=== PATIENT | male | born 1975 | race Caucasian/White ===

== ENCOUNTER 2022-06-24 11:54 | Inpatient (IN) | payer BC ==
[2022-06-24 12:37] LABS: #Basophils 0.1 10x3/uL (0.0-0.2); #Monocytes 0.5 10x3/uL (0.0-1.1); #Neutrophils 6.7 10x3/uL (1.5-8.4); %Basophils 0.6 % (0.0-2.0); %Eosinophils 0.3 % (0.0-6.0); %Lymphocytes 21.1 % (18.0-47.0); %Monocytes 5.6 % (0.0-10.0); %Neutrophils 72.1 % (40.0-75.0); Hemoglobin 17.2 g/dL (13.5-17.5); Mean Corpuscular HGB CONC 35.4 g/dL (32.0-36.0); Mean Corpuscular Hemoglobin 30.9 pg (27.0-33.0); Mean Corpuscular Volume 87.3 fl (81.2-95.1); Mean Platelet Volume 11.4 fl (7.4-10.4); Platelet Count 203 10x3/uL (150-450); RBC Distribution Width 12.6 % (11.5-14.5); Red Blood Cell (RBC) Count 5.57 10x6/uL (4.32-5.72); White Blood Cell (WBC) Count 9.3 10x3/uL (3.5-10.5)
[2022-06-24 12:55] LABS: ALT (SGPT) 26 U/L (8-55); AST (SGOT) 34 U/L (5-34); Albumin 4.6 g/dL (3.5-5.0); Alkaline Phosphatase 83 U/L (40-110); Anion Gap 17 mmol/L (10-20); BUN (Urea Nitrogen) 10 mg/dL (8.9-20.6); Bilirubin, Total 0.7 mg/dL (0.2-1.2); CK (CPK) 350 U/L (30-200); Calc. Creatinine Clearance 0 mL/min (70-130); Carbon Dioxide 26 mmol/L (22-29); Chloride 101 mmol/L (98-107); Estimated GFR 107; Globulin 3.2 g/dL (2.4-3.5); Glucose 137 mg/dL (70-105); Lipase 36 U/L (8-78); Potassium 4.1 mmol/L (3.5-5.1); Protein, Total 7.8 g/dL (6.0-8.3); Sodium 140 mmol/L (136-145)
[2022-06-24] MEDS ORDERED: Aspirin Chewable 81 MG TAB ONE (12:58)
[2022-06-24 13:25] LABS: CKMB 27.5 ng/mL (0-6.6)
[2022-06-24] MEDS ORDERED: Dextrose 5% in Water 1,000 ML IV PRN (13:37)
[2022-06-24] MEDS ORDERED: Dextrose 50% Abboject 50 ML SYRINGE SLOW IVP PRN (13:37)
[2022-06-24] MEDS ORDERED: Ondansetron PF 4 MG/2 ML Vial IVP PRN (13:37)
[2022-06-24] MEDS ORDERED: Nitroglycerin 0.4 MG TAB (25 Tab Bottle) SL PRN (13:37)
[2022-06-24] MEDS ORDERED: Acetaminophen 325 MG TAB PO PRN (13:37)
[2022-06-24] MEDS ORDERED: HumaLOG 300 UNITS/3 ML VIAL SC PRN ×2 (13:37)
[2022-06-24 14:39] LABS: Troponin I 5.059 ng/mL (< 0.028)
[2022-06-24] MEDS: Sodium Chloride 0.9% 1,000 ML IV SCH (16:45)
[2022-06-24 17:53] VITALS: BMI 28.2
[2022-06-24] MEDS ORDERED: FLU VACC QS2022-23(6MOS UP)/PF 60 MCG/0.5 ML SYRINGE IM ONE (18:15)
[2022-06-24] MEDS: Nitroglycerin 2% Ointment 1 INCH/1 GM Packet TOP SCH ×2 (18:24→21:49)
[2022-06-24 18:27] LABS: Troponin I 5.505 ng/mL (< 0.028)
[2022-06-24] MEDS: Atorvastatin Calcium 40 MG TAB PO SCH (21:49)
[2022-06-24] MEDS: Metoprolol Tartrate 25 MG TAB PO SCH (21:49)
[2022-06-25 06:32] LABS: #Basophils 0.1 10x3/uL (0.0-0.2); #Eosinphils 0.1 10x3/uL (0.0-0.5); #Monocytes 0.6 10x3/uL (0.0-1.1); #Neutrophils 7.6 10x3/uL (1.5-8.4); %Basophils 0.6 % (0.0-2.0); %Eosinophils 0.5 % (0.0-6.0); %Lymphocytes 18.6 % (18.0-47.0); %Monocytes 6.2 % (0.0-10.0); %Neutrophils 73.7 % (40.0-75.0); Hemoglobin 15.8 g/dL (13.5-17.5); Mean Corpuscular HGB CONC 36.2 g/dL (32.0-36.0); Mean Corpuscular Hemoglobin 31.2 pg (27.0-33.0); Mean Corpuscular Volume 86.2 fl (81.2-95.1); Mean Platelet Volume 10.7 fl (7.4-10.4); Platelet Count 166 10x3/uL (150-450); RBC Distribution Width 12.8 % (11.5-14.5); Red Blood Cell (RBC) Count 5.06 10x6/uL (4.32-5.72); White Blood Cell (WBC) Count 10.3 10x3/uL (3.5-10.5)
[2022-06-25 06:54] LABS: ALT (SGPT) 25 U/L (8-55); AST (SGOT) 52 U/L (5-34); Albumin 3.9 g/dL (3.5-5.0); Alkaline Phosphatase 62 U/L (40-110); Anion Gap 12 mmol/L (10-20); BUN (Urea Nitrogen) 10 mg/dL (8.9-20.6); Bilirubin, Total 0.9 mg/dL (0.2-1.2); Calc. Creatinine Clearance 155 mL/min (70-130); Calcium 9.2 mg/dL (7.8-10.44); Carbon Dioxide 26 mmol/L (22-29); Cardiac Risk 5.7 (Less than 4.5); Chloride 105 mmol/L (98-107); Cholesterol 149 mg/dl (< 200 Desired); Estimated GFR 112; Globulin 2.9 g/dL (2.4-3.5); Glucose 106 mg/dL (70-105); HDL Cholesterol 26 mg/dL (>60 Neg Risk); LDL Cholesterol, Calculated 100 mg/dL; Protein, Total 6.8 g/dL (6.0-8.3); Sodium 139 mmol/L (136-145); Triglycerides 114 mg/dL (Less than 150)
[2022-06-25] MEDS ORDERED: Nitroglycerin 50 MG/250 ML BOT 250 ML ONE (08:01)
[2022-06-25] MEDS ORDERED: Lidocaine 1% (PF) 30 ML VIAL ONE (08:02)
[2022-06-25] MEDS ORDERED: Heparin 10,000 UNITS/ 10 ML VIAL ONE (08:02)
[2022-06-25] MEDS ORDERED: Verapamil 5 MG/2 ML VIAL ONE (08:03)
[2022-06-25] MEDS: Metoprolol Tartrate 25 MG TAB PO SCH ×2 (08:04→20:46)
[2022-06-25] MEDS: Nitroglycerin 2% Ointment 1 INCH/1 GM Packet TOP SCH (08:04)
[2022-06-25] MEDS: Sodium Chloride 0.9% 1,000 ML IV SCH ×3 (08:04→16:01)
[2022-06-25] MEDS ORDERED: Fentanyl 100 MCG/2 ML VIAL ONE (08:04)
[2022-06-25] MEDS ORDERED: Midazolam HCl 2 mg/2 ml Vial ONE ×2 (08:04→10:01)
[2022-06-25 08:21] LABS: SARS-CoV-2 NAA Rapid Test Not Detected (NotDetected)
[2022-06-25] MEDS ORDERED: Bivalirudin 250 MG VIAL ONE ×2 (08:27→10:18)
[2022-06-25] MEDS ORDERED: Aspirin 81 mg Enteric Coated Tablet PO SCH (09:00)
[2022-06-25] MEDS ORDERED: Aspirin 325 MG TAB ONE (09:20)
[2022-06-25] MEDS ORDERED: TICAGRELOR 90 MG TABLET ONE (09:36)
[2022-06-25] MEDS ORDERED: Iopamidol 300 61% 100 ML VIAL FS ONE (12:08)
[2022-06-25] MEDS ORDERED: Iopamidol 300 61% 50 ML VIAL FS ONE (12:08)
[2022-06-25] MEDS: Atorvastatin Calcium 40 MG TAB PO SCH (20:46)
[2022-06-25] MEDS: TICAGRELOR 90 MG TABLET PO SCH (20:46)
[2022-06-26 06:27] LABS: #Neutrophils 8.9 10x3/uL (1.5-8.4); %Basophils 0.3 % (0.0-2.0); %Eosinophils 0.3 % (0.0-6.0); %Lymphocytes 15.4 % (18.0-47.0); %Monocytes 8.6 % (0.0-10.0); Hemoglobin 15.7 g/dL (13.5-17.5); Mean Corpuscular HGB CONC 35.5 g/dL (32.0-36.0); Mean Corpuscular Hemoglobin 30.7 pg (27.0-33.0); Mean Corpuscular Volume 86.3 fl (81.2-95.1); Mean Platelet Volume 10.9 fl (7.4-10.4); Platelet Count 186 10x3/uL (150-450); RBC Distribution Width 12.5 % (11.5-14.5); Red Blood Cell (RBC) Count 5.12 10x6/uL (4.32-5.72); White Blood Cell (WBC) Count 11.9 10x3/uL (3.5-10.5)
[2022-06-26 06:34] LABS: ALT (SGPT) 24 U/L (8-55); AST (SGOT) 52 U/L (5-34); Alkaline Phosphatase 61 U/L (40-110); Anion Gap 16 mmol/L (10-20); BUN (Urea Nitrogen) 8 mg/dL (8.9-20.6); Bilirubin, Total 1.2 mg/dL (0.2-1.2); Calc. Creatinine Clearance 163 mL/min (70-130); Calcium 9.5 mg/dL (7.8-10.44); Carbon Dioxide 22 mmol/L (22-29); Chloride 103 mmol/L (98-107); Estimated GFR 113; Glucose 106 mg/dL (70-105); Potassium 3.6 mmol/L (3.5-5.1); Sodium 137 mmol/L (136-145)
[2022-06-26] MEDS: Metoprolol Tartrate 25 MG TAB PO SCH (08:54)
[2022-06-26] MEDS: TICAGRELOR 90 MG TABLET PO SCH (08:54)
[2022-06-26] MEDS ORDERED: Aspirin Chewable 81 MG TAB PO SCH (09:00)
[2022-06-26 09:39] VITALS: BP 112/72; TEMP 98.5
== END 2022-06-26 12:38 | disposition home or self-care (01) | DRG 247 ==
LOC: CSHERS 11:54 → OBSVTOIN 13:20 → CSHTELE 13:20
PROVIDERS: ADMIT Internal Medicine; ATTEND Internal Medicine
PROC: 027236Z Dilation of Coronary Artery, Three Arteries with Three Drug-eluting Intraluminal Devices, Percutaneous Approach (ICD-10-PCS; principal; 2022-06-25)
PROC: 4A023N7 Measurement of Cardiac Sampling and Pressure, Left Heart, Percutaneous Approach (ICD-10-PCS; 2022-06-25)
PROC: B2111ZZ Fluoroscopy of Multiple Coronary Arteries using Low Osmolar Contrast (ICD-10-PCS; 2022-06-25)
PROC: B2151ZZ Fluoroscopy of Left Heart using Low Osmolar Contrast (ICD-10-PCS; 2022-06-25)
DX: I21.4 Non-ST elevation (NSTEMI) myocardial infarction (principal); E11.9 Type 2 diabetes mellitus without complications; G47.33 Obstructive sleep apnea (adult) (pediatric); K21.9 Gastro-esophageal reflux disease without esophagitis; Z20.822 Contact with and (suspected) exposure to COVID-19; Z98.890 Other specified postprocedural states; Z79.899 Other long term (current) drug therapy; Z79.84 Long term (current) use of oral hypoglycemic drugs; Z88.8 Allergy status to other drugs, medicaments and biological substances; Z82.49 Family history of ischemic heart disease and other diseases of the circulatory system; Z80.49 Family history of malignant neoplasm of other genital organs; Z88.1 Allergy status to other antibiotic agents
CPT/HCPCS: 36415; 36416; 71045; 80053; 80061; 82550; 82553; 83690; 84484; 85025; 92928; 93005; 93010; 93306; 93458; 96372; 97139; 99152; 99153; C1725; C1769; C1874; C1887; C1894; C9600; J0583; J1644; J1650; J2001; J2250; J3010; J7050; Q9967; U0002